=== PATIENT | female | born 1940 | race Caucasian/White ===

== ENCOUNTER → 2016-06-03 | Outpatient (CLI) | payer MEDICARE ==
[~2016-06-03] MED LIST: ATEN25TA PO; ATOR20TA15 PO; COLC1CAP3 PO; WARF-58 PO; WARF4TAB52 PO
[2016-06-03 14:10] LABS: BLOOD GAS BASE EXCESS -0.8 mmol/L (-2-2); BLOOD GAS CARBOXYHEMOGLOBIN 1.9 % (0-4); BLOOD GAS HCO3 23 mmol/L (22-26); BLOOD GAS O2 HGB SATURATION 94 % (90-100); BLOOD GAS OXYGEN CONTENT 21.7 Vol % (12.0-20.0); BLOOD GAS PCO2 37 mmHg (38-42); BLOOD GAS PO2 91 mmHg (61-120); BLOOD GAS TOTAL HGB 16.3 G/DL (12.0-16.0); CRITICAL VALUE NO; DRAW SITE RT RADIAL; FIO2 21 %; NUMBER OF ARTERIAL PUNCTURES 1; STAT NO; TEMP CORR TO 98.6; ULNAR PULSE PRESENT
--- NOTE | 2016-06-05 09:43 | RSPPFT ---
DATE OF PROCEDURE: 06/03/16 COMMENTS: VOLUMES DYNAMIC: FVC and FEV1 moderately reduced. STATIC: RV mildly increased; VTG and TLC normal. FLOWS: FEV1% mildly reduced; FEF 25-75 severely reduced. DIFFUSION; Normal. FLOW VOLUME LOOP: Pattern of variable intrathoracic airways obstruction. IMPRESSION: Mild obstructive ventilatory defect with mild hyperinflation and a mild increase in airways resistance. Diffusion is normal. There is improvement post-bronchodilator.
== END ==
LOC: HRSP 13:16
PROVIDERS: ATTEND Internal Medicine
DX: J44.9 Chronic obstructive pulmonary disease, unspecified (principal)
CPT/HCPCS: 36600; 82805; 94060; 94620; 94726; 94729

== ENCOUNTER 2017-10-01 15:39 | Emergency (ER) | payer MEDICARE ==
[~2017-10-01] VITALS: Ht 167.6 cm; Wt 83.0 kg
[2017-10-01 15:45] VITALS: BP 178/93; PULSE 101; RESP 16; TEMP 99; O2SAT 91
[2017-10-01] MEDS ORDERED: SODIUM CHLORID 0.9% 500 ML INJ 500 ML IV ONE (16:45)
[2017-10-01] MEDS ORDERED: SODIUM CHLORIDE 0.9% FLUSH 10 ML FLUSH IV FLUSH PRN (16:45)
--- NOTE | 2017-10-01 16:59 | PD ---
HPI Chief Complaint: General Weakness Time Seen by Provider: 16:22 Travel History International Travel<30 days: No Contact w/Intl Traveler<30days: No Traveled to known affect area: No History of Present Illness HPI pt is a 76 y.o female who presents to the ED with a cc of " Cough, Diarrhea, and weakness" . Pt states that she has been having a productive cough with minimal clear sputum X 1 month. Last week she started having watery diarrhea without any mucous or blood. She states that she is always weak, but this morning she woke up with increase weakness. She had difficulty getting out of bed and decided to come to the ED. Denies confusion, visual changes, changes in gain. Also denies having any recent CP, nausea, vomiting. Reports her partner having a cough as well. Pt has a hx of a-fib, takes coumadin. Last INR was 2.5 and it was taken last week. 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 History Past Medical History Menopausal: Yes Social History Alcohol Use: No Tobacco Use: Yes (05/05 PPD) Allergies-Medications (Allergen,Severity, Reaction): Coded Allergies: Sulfa (Sulfonamide Antibiotics) (Unverified Allergy, Severe, Throat swelling, 10/01/17) sulfamethoxazole (Unverified Allergy, Unknown, 10/01/17) trimethoprim (Unverified Allergy, Unknown, 10/01/17) Reported Meds & Prescriptions Reported Meds & Active Scripts Active Mucinex DM (Dextromethorphan-Guaifenesin) 30-600 Mg Tab 1 Tab PO BID PRN 7 Days Levaquin (Levofloxacin) 500 Mg Tablet 500 Mg PO DAILY 10 Days Tessalon Perles (Benzonatate) 100 Mg Cap 100 Mg PO TID PRN Reported Proair Hfa 8.5 GM Inh (Albuterol Sulfate) 90 Mcg/Act Aer 2 Puff INH Q4-6H PRN 108 mcg/actuation Symbicort Inh (Budesonide/Formoterol Fumarate) 80-4.5 Mcg/Act Aero 1 Puff INH Q12HR Lexapro (Escitalopram Oxalate) 20 Mg Tab 25 Mg PO DAILY Lexapro (Escitalopram Oxalate) 20 Mg Tab 20 Mg PO DAILY Atorvastatin (Atorvastatin Calcium) 20 Mg Tab 20 Mg PO HS Warfarin 1 Mg Tab 1.5 Mg PO SUTUTHSA Warfarin 3 Mg Tab 3 Mg PO MOWEFR Atenolol 25 Mg Tab 25 Mg PO DAILY Review of Systems Except as stated in HPI: all other systems reviewed are Neg Physical Exam Narrative GENERAL: well developed, obese female with moderate facial hirsutism and frontal balding. SKIN: Warm and dry. She looks somewhat pale HEAD: Atraumatic. Normocephalic. EYES: Pupils equal and round. No scleral icterus. No injection or drainage. ENT: No nasal bleeding or discharge. Mucous membranes pink and moist. NECK: Trachea midline. No JVD. CARDIOVASCULAR: Regular rate. irregularly irregular rhythm. No murmur appreciated. RESPIRATORY: No accessory muscle use. rales heard at RL lobe. GASTROINTESTINAL: Abdomen soft, non-tender, nondistended. Hepatic and splenic margins not palpable. MUSCULOSKELETAL: Extremities without clubbing, cyanosis, or edema. No obvious deformities. NEUROLOGICAL: Awake and alert. No obvious cranial nerve deficits. Motor grossly within normal limits. Five out of 5 muscle strength in the arms and legs. Normal speech. PSYCHIATRIC: Appropriate mood and affect; insight and judgment normal. Data Data Last Documented VS Vital Signs Date Time Temp Pulse Resp B/P (MAP) Pulse Ox O2 Delivery O2 Flow Rate FiO2 10/01/17 19:55 80 22 181/81 (114) 93 10/01/17 17:04 Room Air 10/01/17 15:45 99.0 Orders Orders Complete Blood Count With Diff (10/01/17 16:44) Comprehensive Metabolic Panel (10/01/17 16:44) Prothrombin Time / Inr (Pt) (10/01/17 16:44) Act Partial Throm Time (Ptt) (10/01/17 16:44) Urinalysis - C+S If Indicated (10/01/17 16:44) Iv Access Insert/Monitor (10/01/17 16:44) Ecg Monitoring (10/01/17 16:44) Oximetry (10/01/17 16:44) Sodium Chloride 0.9% Flush (Ns Flush) (10/01/17 16:45) Electrocardiogram (10/01/17 16:44) Chest, Pa & Lat (10/01/17 ) Sodium Chlorid 0.9% 500 Ml Inj (Ns 500 M (10/01/17 16:45) ^ Straight Catheter (10/01/17 18:44) Ed Discharge Order (10/01/17 19:33) Labs Laboratory Tests Test 10/01/17 17:37 10/01/17 18:41 White Blood Count 12.8 TH/MM3 Red Blood Count 5.08 MIL/MM3 Hemoglobin 16.0 GM/DL Hematocrit 45.7 % Mean Corpuscular Volume 90.0 FL Mean Corpuscular Hemoglobin 31.6 PG Mean Corpuscular Hemoglobin Concent 35.1 % Red Cell Distribution Width 13.7 % Platelet Count 133 TH/MM3 Mean Platelet Volume 8.8 FL Neutrophils (%) (Auto) 83.2 % Lymphocytes (%) (Auto) 8.2 % Monocytes (%) (Auto) 6.9 % Eosinophils (%) (Auto) 0.2 % Basophils (%) (Auto) 1.5 % Neutrophils # (Auto) 10.6 TH/MM3 Lymphocytes # (Auto) 1.0 TH/MM3 Monocytes # (Auto) 0.9 TH/MM3 Eosinophils # (Auto) 0.0 TH/MM3 Basophils # (Auto) 0.2 TH/MM3 CBC Comment DIFF FINAL Differential Comment Prothrombin Time 36.0 SEC Prothromb Time International Ratio 3.6 RATIO Activated Partial Thromboplast Time 41.8 SEC Blood Urea Nitrogen 11 MG/DL Creatinine 1.10 MG/DL Random Glucose 115 MG/DL Total Protein 8.6 GM/DL Albumin 3.6 GM/DL Calcium Level 8.9 MG/DL Alkaline Phosphatase 154 U/L Aspartate Amino Transf (AST/SGOT) 28 U/L Alanine Aminotransferase (ALT/SGPT) 25 U/L Total Bilirubin 0.8 MG/DL Sodium Level 138 MEQ/L Potassium Level 3.6 MEQ/L Chloride Level 101 MEQ/L Carbon Dioxide Level 29.5 MEQ/L Anion Gap 8 MEQ/L Estimat Glomerular Filtration Rate 48 ML/MIN Urine Color YELLOW Urine Turbidity CLEAR Urine pH 5.5 Urine Specific [place] 1.025 Urine Protein 100 mg/dL Urine Glucose (UA) NEG mg/dL Urine Ketones NEG mg/dL Urine Occult Blood TRACE Urine Nitrite NEG Urine Bilirubin NEG Urine Urobilinogen 0.2 MG/DL Urine Leukocyte Esterase NEG Urine RBC 0-3 /hpf Urine WBC 3-5 /hpf Urine Squamous Epithelial Cells 0-5 /hpf Urine Amorphous Sediment FEW Urine Granular Casts 0-2 /lpf Microscopic Urinalysis Comment CULT NOT INDICATED MDM Medical Decision Making Medical Screen Exam Complete: Yes Emergency Medical Condition: Yes Differential Diagnosis Gastroenteritis, Pneumonia, Bronchitis, Sepsis, Dehydration, PR. Narrative Course Patient room the emergency department, certainly does not seem to be in any extremis, vital signs are reassuring, chest x-ray does show some minimal evidence of pneumonia, her labs are reassuring, EKG reassuring as well. For curb 65 score is low risk and need to consider treating her as an outpatient given this very minimal infiltrate. Her Coumadin level is 3.6 I discussed holding for the next 2 days that she will be on antibiotics and can further increase it, discussed that she needs to have the INR rechecked early next week( 2-3 days from now). Discussed symptomatic management at home follow-up with primary care physician and return to ED criteria. She is stable for discharge Diagnosis Primary Impression: Weakness Additional Impression: Pneumonia Med/Other Pt SpecificInfo: Prescription(s) given Scripts Dextromethorphan-Guaifenesin (Mucinex DM) 30-600 Mg Tab 1 TAB PO BID Y for CHEST CONGESTION AND/OR COUGH for 7 Days, #14 TAB 0 Refills Prov: Marcial Barbosa MD 10/01/17 Levofloxacin (Levaquin) 500 Mg Tablet 500 MG PO DAILY for Infection for 10 Days, #10 TAB 0 Refills Prov: Marcial Barbosa MD 10/01/17 Benzonatate (Tessalon Perles) 100 Mg Cap 100 MG PO TID Y for COUGH, #20 CAP 0 Refills Prov: Marcial aBrbosa MD 10/01/17 Disposition: 01 DISCHARGE HOME Condition: Stable Marcial Barbosa MD Oct 01, 2017 16:58
[2017-10-01 17:04] VITALS: O2SAT 93
[2017-10-01] MEDS ORDERED: ALBUAER3 INH (17:10)
[2017-10-01] MEDS ORDERED: SYMB80AE INH (17:10)
[2017-10-01] MEDS ORDERED: LEXA20TA PO (17:10)
--- NOTE | 2017-10-01 17:44 | RADRPT ---
EXAM DATE: 10/01/2017 5:34 PM EDT AGE/SEX: 76 years / Female INDICATIONS: Cough. CLINICAL DATA: This is the patient's initial encounter. Patient reports that signs and symptoms have been present for 3 months and indicates a pain score of 0/10. MEDICAL/SURGICAL HISTORY: None. None. COMPARISON: POI, XR CHEST PA AND LAT, 05/26/2017. . FINDINGS: The heart and mediastinal contours are within normal limits. There are mild chronic appearing interst itial changes diffusely throughout the pulmonary parenchyma. There is subtle stranding of perihilar i nterstitium in the right lower lobe. This is a new finding when compared to previous study dated 05/26. This would be concerning for a small area of pneumonia. Follow-up to ensure this resolves is w arranted. The visualized bony structures demonstrate degenerative changes but are otherwise intact. CONCLUSION: Small area of nonspecific infiltrate in the right lung base concerning for pneumonia. Follow-up to en sure this resolves and there is no underlying mass post treatment would be warranted. Electronically signed by: Todd Kurtz MD 10/01/2017 5:43 PM EDT
[2017-10-01 17:48] LABS: AUTOMATED NEUTROPHIL # 10.6 TH/MM3 (1.8-7.7); BASOPHIL # 0.2 TH/MM3 (0-0.2); BASOPHIL % 1.5 % (0.0-2.0); EOSINOPHIL % 0.2 % (0.0-4.0); HEMATOCRIT 45.7 % (35.0-46.0); LYMPH % 8.2 % (9.0-44.0); MEAN CORPUSCULAR HEMOGLOBIN 31.6 PG (27.0-34.0); MEAN CORPUSCULAR HGB CONC 35.1 % (32.0-36.0); MEAN PLATELET VOLUME 8.8 FL (7.0-11.0); MONO % 6.9 % (0.0-8.0); MONOCYTE # 0.9 TH/MM3 (0-0.9); NEUT % 83.2 % (16.0-70.0); PLATELET COUNT 133 TH/MM3 (150-450); RED BLOOD COUNT 5.08 MIL/MM3 (4.00-5.30); RED CELL DISTRIBUTION WIDTH 13.7 % (11.6-17.2); WHITE BLOOD COUNT 12.8 TH/MM3 (4.0-11.0)
[2017-10-01 17:53] LABS: CHLORIDE 101 MEQ/L (98-107); SODIUM (NA) 138 MEQ/L (136-145)
[2017-10-01 17:56] LABS: CALCIUM 8.9 MG/DL (8.5-10.1)
[2017-10-01 17:57] LABS: ALBUMIN 3.6 GM/DL (3.4-5.0); BICARBONATE 29.5 MEQ/L (21.0-32.0); BLOOD UREA NITROGEN 11 MG/DL (7-18); GLUCOSE,RANDOM 115 MG/DL (74-106); INTERNATIONAL NORMALIZED RATIO 3.6 RATIO
[2017-10-01 18:00] LABS: ALT (GPT) 25 U/L (10-53); AST (GOT) 28 U/L (15-37); GLOMERULAR FILTRATION RATE 48 ML/MIN (>89)
[2017-10-01 18:01] LABS: TOTAL BILIRUBIN ADULT 0.8 MG/DL (0.2-1.0); TOTAL PROTEIN 8.6 GM/DL (6.4-8.2)
[2017-10-01 18:03] LABS: ALKALINE PHOSPHATASE 154 U/L (45-117)
[2017-10-01 19:09] LABS: BLOOD, URINE TRACE (NEG); GLUCOSE,URINE NEG (NEG); KETONE, URINE NEG (NEG); NITRITE,URINE NEG (NEG); PH, URINE 5.5 (5.0-8.5); URINE COLOR YELLOW (YELLW/STRAW); URINE LEUKOCYTE ESTERASE NEG (NEG)
[2017-10-01 19:21] LABS: BILIRUBIN, URINE NEG (NEG)
[2017-10-01] MEDS ORDERED: HUMIBIDDM PO (19:33)
[2017-10-01] MEDS ORDERED: LEVA500T33 PO (19:33)
[2017-10-01] MEDS ORDERED: BENZ100 PO (19:33)
[2017-10-01 19:42] LABS: AMORPHOUS SEDIMENT, URINE FEW; RBC, URINE 0-3 /hpf (0-3); SQUAMOUS EPITHELIAL CELL URINE 0-5 /hpf (0-5)
[2017-10-01 19:55] VITALS: BP 181/81
--- NOTE | 2017-10-02 14:09 | EKG ---
Date Performed: 10/01/2017 Time Performed: 16:59:59 PTAGE: 76 years EKG: ATRIAL FIBRILLATION NONSPECIFIC ST & T-WAVE ABNORMALITY ABNORMAL RHYTHM ECG NO PREVIOUS TRACING DOCTOR: Fabrice Mahoney Interpretating Date/Time 10/02/2017 14:09:03
== END 2017-10-01 20:05 | disposition home or self-care (01) ==
LOC: PHED 15:39
DX: R53.1 Weakness (principal); J18.9 Pneumonia, unspecified organism; R94.31 Abnormal electrocardiogram [ECG] [EKG]; I48.91 Unspecified atrial fibrillation; F17.200 Nicotine dependence, unspecified, uncomplicated
CPT/HCPCS: 71046; 80053; 81001; 85025; 85610; 85730; 93005; 96360; 99285; J7040